=== PATIENT | female | born 1980 ===

== ENCOUNTER 2017-09-01 02:24 | Emergency (ER) | payer OTHER ==
[~2017-09-01] VITALS: Ht 165.1 cm; Wt 99.8 kg
[~2017-09-01 02:24] MED LIST: SULTRIDS PO
== END 2017-09-01 04:54 | disposition home or self-care (01) ==
LOC: ER 02:24
DX: S93.402A Sprain of unspecified ligament of left ankle, initial encounter (principal); F17.200 Nicotine dependence, unspecified, uncomplicated; W18.31XA Fall on same level due to stepping on an object, initial encounter
CPT/HCPCS: 73630; 99283